=== PATIENT | female | born 1995 | race Caucasian/White ===

== ENCOUNTER → 2018-05-12 | Outpatient (REF) | payer OTHER | LOC: M SFHCLERA 10:58 | DX: R30.0 Dysuria (principal) | CPT/HCPCS: 87186 ==

== ENCOUNTER → 2018-06-06 | Outpatient (REF) | payer OTHER ==
[~2018-06-06] MED LIST: SULFAMETHOXAZOLE-TMP
[2018-06-06 18:00] LABS: CHLAMYDIA DNA AMPLIFICATION NEGATIVE (NEGATIVE); GC DNA AMPLIFICATION NEGATIVE (NEGATIVE)
== END ==
LOC: M SFHCLERA 09:54
PROVIDERS: ATTEND Nurse Practitioner Family
DX: R30.0 Dysuria (principal)

== ENCOUNTER 2018-06-14 19:13 | Emergency (ER) | payer OTHER ==
[~2018-06-14] VITALS: Ht 165.1 cm; Wt 79.5 kg
[2018-06-14] MEDS ORDERED: SULFAMETHOXAZOLE-TMP (19:23)
--- NOTE | 2018-06-14 22:02 | REPVR ---
EXAM: US Retroperitoneal Limited, Kidneys EXAM DATE/TIME: 06/14/2018 8:38 PM CLINICAL HISTORY: 23 years old, female; Pain; Abdominal pain; Flank; Other: Bilateral; Additional info: Bilateral flank pain, recurrent uti's TECHNIQUE: Real-time ultrasound of the retroperitoneum with image documentation. Examination was focused on the kidneys. COMPARISON: No relevant prior studies available. FINDINGS: Right kidney: 10 cm in length. 0.8 x 0.9 x 1 cm cyst in the upper pole. No stones. No hydronephrosis. Left kidney: 11.1 cm in length. 0.9 x 0.8 x 0.9 cm cyst in the upper pole. No stones. No hydronephrosis. Bladder: No definite urinary bladder wall thickening. IMPRESSION: 1. No acute sonographic findings. 2. Additional findings, as above. Electronically signed by: Yogi Pratt On 06/14/2018 22:01:54 PM
[2018-06-14 22:37] VITALS: BP 113/59
== END 2018-06-14 23:02 | disposition home or self-care (01) ==
LOC: M ED 19:13
DX: N39.0 Urinary tract infection, site not specified (principal); B96.20 Unspecified Escherichia coli [E. coli] as the cause of diseases classified elsewhere; Z79.2 Long term (current) use of antibiotics

== ENCOUNTER → 2018-06-14 | Outpatient (REF) | payer OTHER | LOC: M SFHCLERA 18:12 | PROVIDERS: ATTEND Nurse Practitioner Family | DX: R30.0 Dysuria (principal) ==